=== PATIENT | male | born 1980 | race Hispanic/Latino ===

== ENCOUNTER 2025-02-12 00:40 | Emergency (ER) | payer SELFPAY ==
[~2025-02-12] VITALS: Ht 172.7 cm; Wt 127.0 kg
[2025-02-12] MEDS ORDERED: AMOX1TAB16 PO (01:21)
--- NOTE | 2025-02-12 01:22 | ERN ---
General Chief Complaint: Laceration/Avulsion Stated Complaint: LACERATION Time Seen by MD: 00:42 History of Present Illness Initial Comments 44-year-old otherwise healthy male who presents for foot laceration. He was walking in his sandal, and he had a cut to his lateral side of his right foot. He reports that he had moderate loss of blood. No other injuries. He is unsure what cut him. Allergies: Coded Allergies: No Known Allergies (Unverified Allergy, Unknown, 02/12/25) Past Medical History Past Medical History: No Pertinent History Past Surgical History: None ROS Dictation CONSTITUTIONAL: No chills, no fever, no weakness, no diaphoresis, no malaise. HEAD/FACE: No signs of trauma. EENT: No eye pain, no blurred vision, no tearing, no double vision, no ear pain, no ear discharge, no nose pain, no nasal congestion, no throat pain, no throat swelling, no mouth pain. RESPIRATORY: No cough, no orthopnea, no SOB, no stridor, no wheezing. CARDIOVASCULAR: No chest pain, no edema, no palpitations, no syncope. GASTROINTESTINAL/ABDOMINAL: No abdominal pain, no constipation, no diarrhea, no nausea, no vomiting. GENITOURINARY: No abnormal discharge, no dysuria, no frequent urination, no hematuria. No complaints of pain in the genitals. MUSCULOSKELETAL: No back pain, no gout, no joint pain, no joint swelling, no muscle pain, no muscle stiffness, no neck pain. INTEGUMENTARY: No change in color, no change in hair/nails, no dryness, no lesion, no lumps, no rash. NEUROLOGICAL/PSYCH: No anxiety, not depressed, no emotional problem, no headache, no numbness, no pre-existing deficit, no history of seizures, no tremors, no weakness. HEMATOLOGIC/LYMPHATIC: Not anemic, no history of blood clots, no apparent bleeding, no bruising, glands not swollen. All Systems Negative, Except as Noted. Physical Exam Physical Exam Dictation VITAL SIGNS: Reviewed. GENERAL APPEARANCE: Alert, oriented x3, no acute distress, obese. HEAD AND FACE: Non-traumatic. EYES: PERRL, pink conjunctivas, eyelid no trauma, anterior chamber clear. EARS: Pinnas intact and no signs of trauma or erythema. Ear canals clear and no discharge. TMs no erythema. NOSE: No discharge, no bleeding. OROPHARYNX: Mouth normal, teeth no caries, tongue pink. Pharynx clear, no erythema. Tonsils no exudates, no abscesses noted. Mucous membrane moist. NECK: Supple, non-tender, no thyromegaly, no masses, no JVD, no bruits. BREAST: Deferred. CHEST: No tenderness, no crepitus, no paradoxical movement, no retractions. LUNGS: Clear, well-ventilated, symmetric, no rales, no wheezing, no rhonchi, no stridor, good breath sounds bilaterally. HEART: Regular rate, regular rhythm, no murmur, no gallops. VASCULAR: No peripheral edema. ABDOMEN: Soft, positive bowel sounds, nondistended, no guarding, nontender, no rebound, no masses no hepatomegaly, no splenomegaly, no Winchester's sign, no hernias. RECTAL: Deferred. GENITAL: Deferred. NEUROLOGICAL: Normal speech, gross motor function intact, gross sensory function intact. MUSCULOSKELETAL: Neck nontender, full range of motion, back nontender, full range of motion. Right foot 1 cm laceration of the lateral side of the bed. EXTREMITIES: Nontender, full range of motion. SKIN: Color pink, dry, no turgor, no rash, no lacerations, no abrasions, no contusions. LYMPHATICS: Deferred. MDM CC: Right foot laceration and Historian: Patient Comorbidities: None Limitations by social determinants of health: None Differential diagnosis: Laceration, foreign body, other. Vital signs are stable Clinical exam shows a 1 cm laceration. No further bleeding. Laceration cleaned by the RN, repaired with skin glue. No complications. Plan: We will DC with routine skin care and recommend PCP follow up. ED Course Orders Procedure Category Date Status Time Tetanus,Diphtheria PHA 02/12/25 In Process Tox [Adult] (Diphther 01:30 Dermabond Set Up CPOE 02/12/25 Transmitted Bedside (Er) 01:19 Current Medications Medications (Trade) Dose Ordered Sig/Luana Route PRN Reason Start Time Stop Time Status Last Admin Dose Admin Tetanus/ Diphtheria Toxoids Adsorbed (DiphthERIA-teTANUS TOXOID [ADULT]/ DECAVAC) 0.5 ml ONCE ONCE IM 02/12/25 01:30 02/12/25 01:31 Vital Signs Date Time Temp Pulse Resp B/P (MAP) Pulse Ox O2 Delivery O2 Flow Rate FiO2 02/12/25 00:41 97.5 85 18 134/80 98 Room Air Laceration/Wound Repair Laceration/Wound Repair : Wound Location: lower extremity Wound's Depth, Shape: superficial, linear Wound Explored: clean DX & DISP Disposition: Discharge Departure Impression: Primary Impression: Laceration of right foot Condition: Stable Scripts Amoxicillin/Potassium Clav (Amox Tr-K Clv 875-125 mg Tab) 875 Mg-125 Mg Tablet 1 TAB PO BID for 10 Days, #20 TAB 0 Refills Prov: LEEANNE DOUGLASS DO 02/12/25 Additional Instructions: You had a right foot laceration. It was cleaned and repaired here in the emergency department. Skin glue was applied to fix the laceration. This will come off on its own. Monitor for any signs of infection. Your tetanus immunization was updated here in the ER. I have prescribed Augmentin, which is an antibiotic. Please take as prescribed. You can take [id number] Tylenol or ibuprofen as needed for pain. Please follow up with the primary doctor in 3-5 days if you continue with Referrals: SELF,REFERRAL (PCP) LEEANNE DOUGLASS DO Feb 12, 2025 01:22
[2025-02-12 01:26] VITALS: BP 134/80; PULSE 84; RESP 18; TEMP 98; O2SAT 97
[2025-02-12] MEDS: teTANUS/diphthERIA TOXOID [ADULT] 0.5 ML VIAL IM ONE (01:35)
[2025-02-12] MEDS: OCTYL 2-CYANOACRYLATE 1 EACH TP ONE (01:43)
== END 2025-02-12 02:49 | disposition home or self-care (01) ==
LOC: EDH 00:40
DX: S91.311A Laceration without foreign body, right foot, initial encounter (principal); W26.9XXA Contact with unspecified sharp object(s), initial encounter; Y93.01 Activity, walking, marching and hiking; Y92.89 Other specified places as the place of occurrence of the external cause; Y99.8 Other external cause status
CPT/HCPCS: 12001; 90471; 90714; 99284